=== PATIENT | female | born 1950 | race African-American/Black ===

== ENCOUNTER 2016-12-08 08:30 | Emergency (ER) | payer MEDICARE, MEDICAID ==
[~2016-12-08] VITALS: Ht 167.6 cm; Wt 75.0 kg
[~2016-12-08 08:30] MED LIST: ALBU1AER INH; ALPR0.5T3 PO; CARI350T19 PO; NORC10TA2 PO; NORV10TA PO; OMEP20CA5 PO
[2016-12-08 08:55] VITALS: BP 144/71; PULSE 94; RESP 18; TEMP 97.8; O2SAT 100
[2016-12-08 09:13] VITALS: RESP 18; O2SAT 100
[2016-12-08] MEDS ORDERED: SODIUM CHLORIDE 0.9% FLUSH 5 ML FLUSH IVF PRN (09:15)
--- NOTE | 2016-12-08 09:18 | PD ---
HPI Chief Complaint: Altered Mental Status Time Seen by Provider: 09:03 Travel History International Travel<30 days: No Contact w/Intl Traveler<30days: No Traveled to known affect area: No History of Present Illness HPI Patient is a 66-year-old female with history of HTN, pancreatitis, GERD who presents the emergency department with altered mental status. Apparently patient was at a restaurant this morning where she was found somewhat lethargic. She was transported here by EMS after restaurant called 911. Patient admitted to nursing that she took 3 pain pills this morning, takes hydrocodone. To me, patient is alert to self, no she's in a hospital but does not know which one. She is drowsy, falls asleep easily and needs constant physical/verbal stimulation to stay awake. She denies taking any of her hydrocodone this morning, denies any other ingestion. She does not have any complaints and is requesting to go home at this time. PFSH Past Medical History ADHD: No Arthritis: Yes Asthma: No Autoimmune Disease: No Blood Disorders: No Anxiety: Yes Depression: No Heart Rhythm Problems: No Cancer: No Cardiovascular Problems: Yes High Cholesterol: No Chemotherapy: No Chest Pain: No Congestive Heart Failure: No COPD: No Cerebrovascular Accident: No Diabetes: No Diminished Hearing: No (UNOBTAINABLE) Endocrine: No Gastrointestinal Disorders: Yes (HX. PANCREATITIS) GERD: Yes Glaucoma: No Genitourinary: No Headaches: Yes Hepatitis: No Hiatal Hernia: No Hypertension: Yes Immune Disorder: No Implanted Vascular Access Dvce: No Kidney Stones: No Musculoskeletal: Yes (DEGENERATIVE DISK DISEASE) Neurologic: Yes (ANEURYSM) Psychiatric: No Reproductive: No Respiratory: No Immunizations Current: No Migraines: No Myocardial Infarction: No Pancreatitis: Yes Radiation Therapy: No Renal Failure: No Seizures: No Sickle Cell Disease: No Sleep Apnea: No Thyroid Disease: No Ulcer: No PNEUMOCCOCAL Vaccine (Year): 1 Menopausal: Yes : 9 Para: 9 Miscarriage: 1 Ovarian Cysts: Yes Tubal Ligation: Yes Past Surgical History Abdominal Surgery: Yes AICD: No Appendectomy: Yes Arteriovenous Shunt: No Cardiac Surgery: No Section: Yes (X 1) Cholecystectomy: Yes Ear Surgery: No Endocrine Surgery: No Eye Surgery: No Genitourinary Surgery: No Gynecologic Surgery: Yes (C-SEC) Insulin Pump: No Joint Replacement: No Neurologic Surgery: No Oral Surgery: No Pacemaker: No Thoracic Surgery: No Other Surgery: Yes (CHOLECYSTECTOMY) Social History Alcohol Use: Yes Tobacco Use: Yes (12/05 PPD) Substance Use: No (UNOBTAINABLE) Allergies-Medications (Allergen,Severity, Reaction): Coded Allergies: No Known Allergies (Verified , 04/26/16) Reported Meds & Prescriptions Reported Meds & Active Scripts Active Prilosec 20 mg (Omeprazole) 20 Mg Capcr 20 Mg PO DAILY Reported Proair Hfa (Albuterol Sulfate) 8.5 Gm Aero 2 Puff INH Q4HR PRN * 2 PUFFS INHALED 15 MINUTES PRIOR TO EXERCISE * * SHAKE WELL BEFORE USE * Carisoprodol 350 Mg Tab 350 Mg PO TID PRN [place] 10-325 mg (Hydrocodone-Acetaminophen 10-325 mg) 1 Tab 1 Tab PO Q4-6H PRN Alprazolam 0.5 Mg Tab 0.5 Mg PO TID PRN Norvasc (Amlodipine Besylate) 10 Mg Tab 1 Tab PO DAILY Review of Systems ROS Limitations: Altered Mental Status, Poor Historian Physical Exam Exam Limitations: Altered Mental Status, Poor Historian Narrative GENERAL: Drowsy female in no acute distress SKIN: Warm and dry. HEAD: Atraumatic. Normocephalic. EYES: Pupils equal and round. 3 mm. No scleral icterus. No injection or drainage. ENT: No nasal bleeding or discharge. Mucous membranes pink and moist. NECK: Supple without nuchal rigidity CARDIOVASCULAR: Regular rate and rhythm. No murmur appreciated. RESPIRATORY: No accessory muscle use. Clear to auscultation. Breath sounds equal bilaterally. GASTROINTESTINAL: Abdomen soft, non-tender, nondistended. Obese MUSCULOSKELETAL: Moves all extremity's normally NEUROLOGICAL: Drowsy, falls asleep easily on exam. Alert to person, no she's in a hospital but does not know which one. Alert to date. Grossly nonfocal neuro exam, moves all extremity strong. Speech is slurred. PSYCHIATRIC: Deferred given mental status Data Data Last Documented VS Vital Signs Date Time Temp Pulse Resp B/P Pulse Ox O2 Delivery O2 Flow Rate FiO2 12/08/16 09:13 18 100 Room Air 12/08/16 08:55 97.8 94 144/71 Orders Electrocardiogram (12/08/16 09:07) Alcohol (Ethanol) (12/08/16 09:07) Complete Blood Count With Diff (12/08/16 09:07) Comprehensive Metabolic Panel (12/08/16 09:07) Drug Screen, Random Urine (12/08/16 09:07) Salicylates (Aspirin) (12/08/16 09:07) Tylenol (Acetaminophen) (12/08/16 09:07) Ecg Monitoring (12/08/16 09:07) Iv Access Insert/Monitor (12/08/16 09:07) Oximetry (12/08/16 09:07) Sodium Chloride 0.9% Flush (Ns Flush) (12/08/16 09:15) Labs Laboratory Tests Test 12/08/16 09:25 White Blood Count 10.9 TH/MM3 Red Blood Count 4.30 MIL/MM3 Hemoglobin 10.4 GM/DL Hematocrit 31.0 % Mean Corpuscular Volume 72.2 FL Mean Corpuscular Hemoglobin 24.3 PG Mean Corpuscular Hemoglobin 33.7 % Concent Red Cell Distribution Width 14.5 % Platelet Count 283 TH/MM3 Mean Platelet Volume 9.1 FL Neutrophils (%) (Auto) 51.4 % Lymphocytes (%) (Auto) 35.9 % Monocytes (%) (Auto) 9.7 % Eosinophils (%) (Auto) 2.4 % Basophils (%) (Auto) 0.6 % Neutrophils # (Auto) 5.6 TH/MM3 Lymphocytes # (Auto) 3.9 TH/MM3 Monocytes # (Auto) 1.1 TH/MM3 Eosinophils # (Auto) 0.3 TH/MM3 Basophils # (Auto) 0.1 TH/MM3 CBC Comment AUTO DIFF Differential Comment AUTO DIFF CONFIRMED Sodium Level 137 MEQ/L Potassium Level 5.1 MEQ/L Chloride Level 101 MEQ/L Carbon Dioxide Level 31.9 MEQ/L Anion Gap 4 MEQ/L Blood Urea Nitrogen 15 MG/DL Creatinine 0.83 MG/DL Estimat Glomerular Filtration 83 ML/MIN Rate Random Glucose 84 MG/DL Calcium Level 9.0 MG/DL Total Bilirubin 0.3 MG/DL Aspartate Amino Transf 57 U/L (AST/SGOT) Alanine Aminotransferase 41 U/L (ALT/SGPT) Alkaline Phosphatase 139 U/L Total Protein 7.7 GM/DL Albumin 3.3 GM/DL Salicylates Level 2.6 MG/DL Acetaminophen Level LESS THAN 2.0 MCG/ML Ethyl Alcohol Level LESS THAN 3 MG/DL MDM Medical Decision Making Medical Screen Exam Complete: Yes Emergency Medical Condition: Yes Medical Record Reviewed: Yes Differential Diagnosis 66-year-old female here with altered mental status, questionable overdose. Differential includes alcohol intoxication, opioid abuse, overdose, electrolyte abnormality. Neurologic examination nonfocal. I do not think she warrants imaging for ICH, CVA. Narrative Course Patient placed on monitor, IV established and blood obtained. Twelve-lead EKG shows sinus rhythm without notable ST or T-wave abnormalities, normal intervals. Occasional PVCs. CBC, CMP, aspirin, Tylenol, blood alcohol level unremarkable. Patient's mental status gradually improved throughout her ED stay. She is able to ablate without difficulty. She refuses to give urinalysis , and refuses to be cathetered. I don't think that this changes her disposition. She is chronically on opioids and I anticipate this to be present in her urine. Patient has not had any respiratory or neurologic compromise in her mental status continues to improve. She has never required Narcan and will be discharged home. Diagnosis Primary Impression: Opioid use disorder, mild, abuse Additional Impression: Altered mental status Qualified Code: R41.82 - Altered mental status, unspecified altered mental status type Referrals: Primary Care Physician as needed Med/Other Pt SpecificInfo: No Change to Meds Disposition: 01 DISCHARGE HOME Condition: Stable Nelida Daniels MD Dec 08, 2016 09:18 Nelida Daniels MD Dec 08, 2016 09:18
[2016-12-08 09:53] LABS: AUTOMATED NEUTROPHIL # 5.6 TH/MM3 (1.8-7.7); BASOPHIL # 0.1 TH/MM3 (0-0.2); BASOPHIL % 0.6 % (0.0-2.0); EOSINOPHIL # 0.3 TH/MM3 (0-0.4); EOSINOPHIL % 2.4 % (0.0-4.0); LYMPH % 35.9 % (9.0-44.0); LYMPHOCYTE # 3.9 TH/MM3 (1.0-4.8); MEAN CELL VOLUME 72.2 FL (80.0-100.0); MEAN CORPUSCULAR HEMOGLOBIN 24.3 PG (27.0-34.0); MEAN CORPUSCULAR HGB CONC 33.7 % (32.0-36.0); MONO % 9.7 % (0.0-8.0); NEUT % 51.4 % (16.0-70.0); PLATELET COUNT 283 TH/MM3 (150-450); RED CELL DISTRIBUTION WIDTH 14.5 % (11.6-17.2); WHITE BLOOD COUNT 10.9 TH/MM3 (4.0-11.0)
[2016-12-08 09:56] LABS: HEMO FLAGS AUTO DIFF
[2016-12-08 10:24] LABS: ALKALINE PHOSPHATASE 139 U/L (45-117); ALT (GPT) 41 U/L (10-53); ANION GAP 4 MEQ/L (5-15); AST (GOT) 57 U/L (15-37); BICARBONATE 31.9 MEQ/L (21.0-32.0); BLOOD UREA NITROGEN 15 MG/DL (7-18); CHLORIDE 101 MEQ/L (98-107); GLOMERULAR FILTRATION RATE 83 ML/MIN (>89); SCAN/DIFF AUTO DIFF CONFIRMED; SODIUM (NA) 137 MEQ/L (136-145); TOTAL BILIRUBIN ADULT 0.3 MG/DL (0.2-1.0)
[2016-12-08 10:25] LABS: ACETAMINOPHEN LESS THAN 2.0 MCG/ML (10.0-30.0); POTASSIUM 5.1 MEQ/L (3.5-5.1)
[2016-12-08 12:00] VITALS: BP 131/74; PULSE 92; RESP 18; O2SAT 98
--- NOTE | 2016-12-08 14:06 | EKG ---
Date Performed: 12/08/2016 Time Performed: 09:41:59 PTAGE: 66 years EKG: Sinus rhythm WITH OCCASIONAL VENTRICULAR PREMATURE COMPLEXES BORDERLINE ECG PREVIOUS TRACING : 04/26/2016 10.22 Compared to the previous tracing, PVCs now noted DOCTOR: Quang Duenas Interpretating Date/Time 12/08/2016 14:05:25
== END 2016-12-08 12:00 | disposition home or self-care (01) ==
LOC: NEPE 08:30
DX: R41.82 Altered mental status, unspecified (principal); F11.10 Opioid abuse, uncomplicated; R94.31 Abnormal electrocardiogram [ECG] [EKG]; K21.9 Gastro-esophageal reflux disease without esophagitis; I10 Essential (primary) hypertension; K85.90 Acute pancreatitis without necrosis or infection, unspecified; M19.90 Unspecified osteoarthritis, unspecified site; F17.210 Nicotine dependence, cigarettes, uncomplicated
CPT/HCPCS: 80053; 85025; 93005; 99285; G0480; 80320; 80329

== ENCOUNTER 2016-12-25 16:54 | Emergency (ER) | payer MEDICARE, MEDICAID ==
[~2016-12-25] VITALS: Ht 157.5 cm; Wt 70.0 kg
[2016-12-25 16:56] VITALS: BP 180/104; PULSE 127; RESP 14; TEMP 99; O2SAT 94
--- NOTE | 2016-12-25 18:22 | PD ---
HPI Chief Complaint: GI Complaint Time Seen by Provider: 18:21 Travel History International Travel<30 days: No Contact w/Intl Traveler<30days: No Traveled to known affect area: No History of Present Illness HPI 66 year-old female with history of CAD, hypertension, GERD, anxiety, opioid abuse, tobacco dependency, presents to emergency department for evaluation of "not feeling well." Patient states she has had cough, chest congestion, shortness of breath, fever, chills, and headache worsening over the last couple days. States that she aches "all over." Patient has had some nausea, no vomiting. She has had an episode of diarrhea. She has no other symptoms to report at this time. PFSH Past Medical History ADHD: No Arthritis: Yes Asthma: No Autoimmune Disease: No Blood Disorders: No Anxiety: Yes Depression: No Heart Rhythm Problems: No Cancer: No Cardiovascular Problems: Yes High Cholesterol: No Chemotherapy: No Chest Pain: No Congestive Heart Failure: No COPD: No Cerebrovascular Accident: No Diabetes: No Diminished Hearing: No (UNOBTAINABLE) Endocrine: No Gastrointestinal Disorders: Yes (HX. PANCREATITIS) GERD: Yes Glaucoma: No Genitourinary: No Headaches: Yes Hepatitis: No Hiatal Hernia: No Hypertension: Yes Immune Disorder: No Implanted Vascular Access Dvce: No Kidney Stones: No Musculoskeletal: Yes (DEGENERATIVE DISK DISEASE) Neurologic: Yes (ANEURYSM) Psychiatric: No Reproductive: No Respiratory: No Immunizations Current: No Migraines: No Myocardial Infarction: No Pancreatitis: Yes Radiation Therapy: No Renal Failure: No Seizures: No Sickle Cell Disease: No Sleep Apnea: No Thyroid Disease: No Ulcer: No PNEUMOCCOCAL Vaccine (Year): 1 Menopausal: Yes : 9 Para: 9 Miscarriage: 1 Ovarian Cysts: Yes Tubal Ligation: Yes Past Surgical History Abdominal Surgery: Yes AICD: No Appendectomy: Yes Arteriovenous Shunt: No Cardiac Surgery: No Section: Yes (X 1) Cholecystectomy: Yes Ear Surgery: No Endocrine Surgery: No Eye Surgery: No Genitourinary Surgery: No Gynecologic Surgery: Yes (C-SEC) Insulin Pump: No Joint Replacement: No Neurologic Surgery: No Oral Surgery: No Pacemaker: No Thoracic Surgery: No Other Surgery: Yes (CHOLECYSTECTOMY) Social History Alcohol Use: Yes Tobacco Use: Yes (12/05 PPD) Substance Use: No (UNOBTAINABLE) Allergies-Medications (Allergen,Severity, Reaction): Coded Allergies: No Known Allergies (Verified , 04/26/16) Reported Meds & Prescriptions Reported Meds & Active Scripts Active Prilosec 20 mg (Omeprazole) 20 Mg Capcr 20 Mg PO DAILY Reported Proair Hfa (Albuterol Sulfate) 8.5 Gm Aero 2 Puff INH Q4HR PRN * 2 PUFFS INHALED 15 MINUTES PRIOR TO EXERCISE * * SHAKE WELL BEFORE USE * Carisoprodol 350 Mg Tab 350 Mg PO TID PRN [place] 10-325 mg (Hydrocodone-Acetaminophen 10-325 mg) 1 Tab 1 Tab PO Q4-6H PRN Alprazolam 0.5 Mg Tab 0.5 Mg PO TID PRN Norvasc (Amlodipine Besylate) 10 Mg Tab 1 Tab PO DAILY Review of Systems Except as stated in HPI: all other systems reviewed are Neg Physical Exam Narrative GENERAL: Well-nourished female patient, sitting up in the bed, in no acute distress SKIN: Warm and dry. HEAD: Atraumatic. Normocephalic. EYES: Pupils equal and round. No scleral icterus. No injection or drainage. ENT: No nasal bleeding or discharge. Mucous membranes pink and moist. NECK: Trachea midline. No JVD. CARDIOVASCULAR: Tachycardic rate and rhythm. No murmur appreciated. RESPIRATORY: No accessory muscle use. Diminished, coarse,. Breath sounds equal bilaterally. GASTROINTESTINAL: Abdomen soft, non-tender, nondistended. Hepatic and splenic margins not palpable. MUSCULOSKELETAL: No obvious deformities. No clubbing. No cyanosis. No edema. NEUROLOGICAL: Awake and alert. No obvious cranial nerve deficits. Motor grossly within normal limits. Normal speech. PSYCHIATRIC: Appropriate mood and affect; insight and judgment normal. Data Data Last Documented VS Vital Signs Date Time Temp Pulse Resp B/P Pulse Ox O2 Delivery O2 Flow Rate FiO2 12/25/16 20:37 20 12/25/16 16:56 99.0 127 180/104 94 Room Air Orders Electrocardiogram (12/25/16 18:22) Basic Metabolic Panel (Bmp) (12/25/16 18:22) B-Type Natriuretic Peptide (12/25/16 18:22) Ckmb (Isoenzyme) Profile (12/25/16 18:22) Complete Blood Count With Diff (12/25/16 18:22) Magnesium (Mg) (12/25/16 18:22) Prothrombin Time / Inr (Pt) (12/25/16 18:22) Act Partial Throm Time (Ptt) (12/25/16 18:22) Troponin I (12/25/16 18:22) Lipase (12/25/16 18:22) Chest, Single Ap (12/25/16 18:22) Influenzae A/B Antigen (12/25/16 18:22) Labs Laboratory Tests Test 12/25/16 18:58 White Blood Count 15.6 TH/MM3 Red Blood Count 5.10 MIL/MM3 Hemoglobin 11.8 GM/DL Hematocrit 36.4 % Mean Corpuscular Volume 71.4 FL Mean Corpuscular Hemoglobin 23.1 PG Mean Corpuscular Hemoglobin 32.3 % Concent Red Cell Distribution Width 14.8 % Platelet Count 383 TH/MM3 Mean Platelet Volume 8.7 FL Neutrophils (%) (Auto) 76.2 % Lymphocytes (%) (Auto) 11.7 % Monocytes (%) (Auto) 10.6 % Eosinophils (%) (Auto) 1.1 % Basophils (%) (Auto) 0.4 % Neutrophils # (Auto) 11.9 TH/MM3 Lymphocytes # (Auto) 1.8 TH/MM3 Monocytes # (Auto) 1.7 TH/MM3 Eosinophils # (Auto) 0.2 TH/MM3 Basophils # (Auto) 0.1 TH/MM3 CBC Comment AUTO DIFF Differential Comment AUTO DIFF CONFIRMED Platelet Estimate NORMAL Platelet Morphology Comment NORMAL Target Cells 2+ Prothrombin Time 10.5 SEC Prothromb Time International 1.0 RATIO Ratio Activated Partial 27.0 SEC Thromboplast Time Sodium Level 141 MEQ/L Potassium Level 3.8 MEQ/L Chloride Level 104 MEQ/L Carbon Dioxide Level 27.9 MEQ/L Anion Gap 9 MEQ/L Blood Urea Nitrogen 16 MG/DL Creatinine 1.12 MG/DL Estimat Glomerular Filtration 59 ML/MIN Rate Random Glucose 106 MG/DL Calcium Level 9.3 MG/DL Magnesium Level 2.0 MG/DL Total Creatine Kinase 86 U/L Troponin I LESS THAN 0.02 NG/ML Lipase 171 U/L MDM Medical Decision Making Medical Screen Exam Complete: Yes Emergency Medical Condition: Yes Medical Record Reviewed: Yes Differential Diagnosis CHF versus pneumonia versus influenza versus gastroenteritis versus sepsis Narrative Course 66 year-old female presents to emergency department for evaluation. Workup was initiated in triage. Once a medical bed becomes available, patient will be transferring care assumed by that provider. Condition: Stable Zully Skinner Dec 25, 2016 18:22 Zully Skinner Dec 25, 2016 18:22
--- NOTE | 2016-12-25 18:59 | RADRPT ---
EXAM DATE/TIME: 12/25/2016 18:25 [facility] COMPARISON: CHEST SINGLE AP, April 26, 2016, 10:51. INDICATIONS : Flu like symptoms for five days. Congestion and weakness. MEDICAL HISTORY : Hypertension. SURGICAL HISTORY : None. ENCOUNTER: Initial ACUITY: 4 - 6 days PAIN SCORE: 0/10 LOCATION: Bilateral chest FINDINGS: A single view of the chest demonstrates the lungs to be symmetrically aerated without evidence of mas s, infiltrate or effusion. The cardiomediastinal contours are unremarkable. Osseous structures are intact. CONCLUSION: No acute disease. Jair Humphrey Jr., MD on December 25, 2016 at 18:57 Board Certified Radiologist. This report was verified electronically.
[2016-12-25 19:25] LABS: AUTOMATED NEUTROPHIL # 11.9 TH/MM3 (1.8-7.7); BASOPHIL # 0.1 TH/MM3 (0-0.2); BASOPHIL % 0.4 % (0.0-2.0); EOSINOPHIL # 0.2 TH/MM3 (0-0.4); EOSINOPHIL % 1.1 % (0.0-4.0); HEMATOCRIT 36.4 % (35.0-46.0); LYMPH % 11.7 % (9.0-44.0); LYMPHOCYTE # 1.8 TH/MM3 (1.0-4.8); MEAN CELL VOLUME 71.4 FL (80.0-100.0); MEAN CORPUSCULAR HEMOGLOBIN 23.1 PG (27.0-34.0); MEAN CORPUSCULAR HGB CONC 32.3 % (32.0-36.0); MONO % 10.6 % (0.0-8.0); NEUT % 76.2 % (16.0-70.0); PLATELET COUNT 383 TH/MM3 (150-450); RED CELL DISTRIBUTION WIDTH 14.8 % (11.6-17.2); WHITE BLOOD COUNT 15.6 TH/MM3 (4.0-11.0)
[2016-12-25 19:26] LABS: HEMO FLAGS AUTO DIFF
[2016-12-25 19:40] LABS: PROTHROMBIN TIME - PATIENT 10.5 SEC (9.8-11.6)
[2016-12-25 19:42] LABS: ANION GAP 9 MEQ/L (5-15); BICARBONATE 27.9 MEQ/L (21.0-32.0); BLOOD UREA NITROGEN 16 MG/DL (7-18); CHLORIDE 104 MEQ/L (98-107); GLOMERULAR FILTRATION RATE 59 ML/MIN (>89); POTASSIUM 3.8 MEQ/L (3.5-5.1); SODIUM (NA) 141 MEQ/L (136-145)
[2016-12-25 19:48] LABS: CREATINE KINASE 86 U/L (26-192)
[2016-12-25 19:59] LABS: TARGET CELLS 2+ (NORMAL)
[2016-12-25 20:00] LABS: PLATELET ESTIMATE SMEAR NORMAL (NORMAL); PLATELET MORPHOLOGY NORMAL (NORMAL); SCAN/DIFF AUTO DIFF CONFIRMED
[2016-12-25] MEDS ORDERED: CARI350T20 PO (20:44)
[2016-12-25] MEDS ORDERED: ALBUAER3 INH (20:44)
[2016-12-25] MEDS ORDERED: AMLO10 PO (20:44)
[2016-12-25] MEDS ORDERED: OMEP20TA PO (20:44)
[2016-12-25 20:46] VITALS: BP 147/85; PULSE 115; RESP 14; TEMP 98.9; O2SAT 97
[2016-12-25] MEDS ORDERED: SODIUM CHLOR 0.9% 1000 ML INJ 1,000 ML IV SCH (21:13)
[2016-12-25] MEDS ORDERED: SODIUM CHLOR 0.9% 1000 ML INJ 1,000 ML IV ONE (21:15)
[2016-12-25] MEDS ORDERED: HYDROmorphone HCL PF 1 MG/ML VIAL IVS ONE (21:15)
--- NOTE | 2016-12-25 22:18 | PD ---
Data Data Last Documented VS Vital Signs Date Time Temp Pulse Resp B/P Pulse Ox O2 Delivery O2 Flow Rate FiO2 12/26/16 00:52 97 18 165/77 98 Room Air 12/25/16 20:46 98.9 2 Orders Electrocardiogram (12/25/16 18:22) Basic Metabolic Panel (Bmp) (12/25/16 18:22) B-Type Natriuretic Peptide (12/25/16 18:22) Ckmb (Isoenzyme) Profile (12/25/16 18:22) Complete Blood Count With Diff (12/25/16 18:22) Magnesium (Mg) (12/25/16 18:22) Prothrombin Time / Inr (Pt) (12/25/16 18:22) Act Partial Throm Time (Ptt) (12/25/16 18:22) Troponin I (12/25/16 18:22) Lipase (12/25/16 18:22) Chest, Single Ap (12/25/16 18:22) Influenzae A/B Antigen (12/25/16 18:22) Lactic Acid (12/25/16 21:13) Sodium Chlor 0.9% 1000 Ml Inj (Ns 1000 M (12/25/16 21:13) Hydromorphone Pf Inj (Dilaudid Pf Inj) (12/25/16 21:15) Sodium Chlor 0.9% 1000 Ml Inj (Ns 1000 M (12/25/16 21:15) Influenzae A/B Antigen (12/25/16 21:13) Hepatic Functional Panel (12/25/16 18:58) Albuterol Hfa Inh (Proair Hfa Inh) (12/26/16 00:15) Methylprednisolone So Succ Inj (Solumedr (12/26/16 00:30) Labs Laboratory Tests Test 12/25/16 12/25/16 18:58 22:10 White Blood Count 15.6 TH/MM3 Red Blood Count 5.10 MIL/MM3 Hemoglobin 11.8 GM/DL Hematocrit 36.4 % Mean Corpuscular Volume 71.4 FL Mean Corpuscular Hemoglobin 23.1 PG Mean Corpuscular Hemoglobin 32.3 % Concent Red Cell Distribution Width 14.8 % Platelet Count 383 TH/MM3 Mean Platelet Volume 8.7 FL Neutrophils (%) (Auto) 76.2 % Lymphocytes (%) (Auto) 11.7 % Monocytes (%) (Auto) 10.6 % Eosinophils (%) (Auto) 1.1 % Basophils (%) (Auto) 0.4 % Neutrophils # (Auto) 11.9 TH/MM3 Lymphocytes # (Auto) 1.8 TH/MM3 Monocytes # (Auto) 1.7 TH/MM3 Eosinophils # (Auto) 0.2 TH/MM3 Basophils # (Auto) 0.1 TH/MM3 CBC Comment AUTO DIFF Differential Comment AUTO DIFF CONFIRMED Platelet Estimate NORMAL Platelet Morphology Comment NORMAL Target Cells 2+ Prothrombin Time 10.5 SEC Prothromb Time International 1.0 RATIO Ratio Activated Partial 27.0 SEC Thromboplast Time Sodium Level 141 MEQ/L Potassium Level 3.8 MEQ/L Chloride Level 104 MEQ/L Carbon Dioxide Level 27.9 MEQ/L Anion Gap 9 MEQ/L Blood Urea Nitrogen 16 MG/DL Creatinine 1.12 MG/DL Estimat Glomerular Filtration 59 ML/MIN Rate Random Glucose 106 MG/DL Calcium Level 9.3 MG/DL Magnesium Level 2.0 MG/DL Total Bilirubin 0.4 MG/DL Direct Bilirubin 0.1 MG/DL Indirect Bilirubin 0.3 MG/DL Aspartate Amino Transf 18 U/L (AST/SGOT) Alanine Aminotransferase 16 U/L (ALT/SGPT) Alkaline Phosphatase 111 U/L Total Creatine Kinase 86 U/L Troponin I LESS THAN 0.02 NG/ML B-Type Natriuretic Peptide 17 PG/ML Total Protein 8.8 GM/DL Albumin 3.6 GM/DL Lipase 171 U/L Lactic Acid Level 1.0 mmol/L [facility] Medical Record Reviewed: Yes Supervised Visit with ZULAY: Yes Narrative Course I, Dr. Duenas, have reviewed the advance practice practitioner's documentation and am in agreement, met with the patient face to face, made the diagnosis, and the medical decision making was done by me. *My assessment and Findings: CBC & BMP Diagram 12/25/16 18:58 Neutrophils 76.2% LFTs normal Tn < 0.02 Lipase 171 Coags 10.5 / 1.0 / 27.0 EKG reveals a sinus tachycardia with a rate of 123 axis is normal, ventricular hypertrophy Last 24 hours Impressions Chest X-Ray 12/25/16 0262 Signed Impressions: Service Date/Time: Sunday, December 25, 2016 18:25 - CONCLUSION: No acute disease. Jair Humphrey Jr., MD Influenza assay negative: could be false negative Overall presentation similar to prior cases of influenza. Patient received IV fluids. She reports feeling much better. She also received hydromorphone with significant improvement. Mild persistent wheezing observed on reassessment. Albuterol inhaler. Diagnosis Primary Impression: Wheezing Additional Impression: Flu-like symptoms Referrals: Dr Jair Shepard 2 days Additional Instruction: You have a choice when it comes to health care, and we are glad that you chose [facility]. Hopefully, we have met your expectations on today's visit. You are welcome to return to [facility] at any time, as we are committed to meeting the health care needs of our community. Med/Other Pt SpecificInfo: Prescription(s) given Scripts Prednisone 20 Mg Tab40 Mg PO DAILY 4 Days Ref 0 Prov:Shakir Duenas MD 12/26/16 Oseltamivir (Tamiflu)75 Mg Cap75 Mg PO BID 7 Days Ref 0 Prov:Shakir Duenas MD 12/26/16 Disposition: 01 DISCHARGE HOME Condition: Shakir Charlton MD Dec 25, 2016 22:18 [facility]. Hopefully, we have met your expectations on today's visit. You are welcome to return to [facility] at any time, as we are committed to meeting the health care needs of our community. Med/Other Pt SpecificInfo: Prescription(s) given Scripts Prednisone 20 Mg Tab40 Mg PO DAILY 4 Days Ref 0 Prov:Shakir Duenas MD 12/26/16 Oseltamivir (Tamiflu)75 Mg Cap75 Mg PO BID 7 Days Ref 0 Prov:Shakir Duenas MD 12/26/16 Disposition: 01 DISCHARGE HOME Condition: Shakir Charlton MD Dec 25, 2016 22:18
[2016-12-25 23:14] LABS: ALKALINE PHOSPHATASE 111 U/L (45-117); ALT (GPT) 16 U/L (10-53); AST (GOT) 18 U/L (15-37); INDIRECT BILIRUBIN 0.3 MG/DL (0.0-0.8); TOTAL BILIRUBIN ADULT 0.4 MG/DL (0.2-1.0)
[2016-12-26] MEDS ORDERED: ALBUTEROL SULFATE 90 MCG/ACT HFA 8 GM INHALER INH ONE (00:15)
[2016-12-26] MEDS ORDERED: OSEL75 PO (00:17)
[2016-12-26] MEDS ORDERED: PRED20 PO (00:17)
[2016-12-26] MEDS ORDERED: methylPREDNISolone SOD SUCC 125 MG/2 ML VIAL IV PUSH ONE (00:30)
[2016-12-26 00:52] VITALS: BP 165/77; PULSE 97; RESP 18; O2SAT 98
--- NOTE | 2016-12-26 05:43 | EKG ---
Date Performed: 12/25/2016 Time Performed: 19:12:35 PTAGE: 66 years EKG: SINUS TACHYCARDIA WITH SHORT IN INTERVAL LEFT VENTRICULAR HYPERTROPHY AND ST-T CHANGE ABNOR MAL ECG COMPARED TO PRIOR ELECTROCARDIOGRAM, Rate has increased and ST-T wave changes are present. P REVIOUS TRACING : 12/08/2016 09.41 DOCTOR: Gama Kovacs Interpretating Date/Time 12/26/2016 05:41:43
== END 2016-12-26 01:37 | disposition home or self-care (01) ==
LOC: NEPC 16:54
DX: R06.2 Wheezing (principal); R06.02 Shortness of breath; R50.9 Fever, unspecified; R51 Headache; M79.1 Myalgia; R94.31 Abnormal electrocardiogram [ECG] [EKG]; I25.10 Atherosclerotic heart disease of native coronary artery without angina pectoris; I10 Essential (primary) hypertension; F11.10 Opioid abuse, uncomplicated; F17.200 Nicotine dependence, unspecified, uncomplicated; Z86.59 Personal history of other mental and behavioral disorders; Z87.39 Personal history of other diseases of the musculoskeletal system and connective tissue; Z87.19 Personal history of other diseases of the digestive system; Z86.69 Personal history of other diseases of the nervous system and sense organs
CPT/HCPCS: 71010; 80048; 80076; 82550; 83605; 83690; 83735; 83880; 84484; 85025; 85610; 85730; 87804; 93005; 96374; 96375; 99284; J1170; J2930; J7030

== ENCOUNTER 2018-02-16 14:53 | Emergency (ER) | payer MEDICARE, MEDICAID ==
[~2018-02-16] VITALS: Ht 157.5 cm; Wt 77.0 kg
[~2018-02-16 14:53] MED LIST changes: +ALBUAER3 INH; +AMLO10 PO; +CARI350T20 PO; +OMEP20TA93 PO; +OSEL75 PO; +PRED20 PO
[2018-02-16] MEDS ORDERED: IOHEXOL 350 MG/ML 10 ML VIAL (for RAD DIAG) IVCONTRAST ONE (14:54)
[2018-02-16 15:11] VITALS: BP 163/68; PULSE 110; RESP 16; TEMP 98.1; O2SAT 97
[2018-02-16 17:45] VITALS: BP 143/65; PULSE 96; RESP 18; O2SAT 97
[2018-02-16] MEDS ORDERED: MORPHINE SULFATE 4 MG/ML INJ IV PUSH ONE (17:45)
[2018-02-16] MEDS ORDERED: SODIUM CHLORIDE 0.9% FLUSH 10 ML FLUSH IV FLUSH PRN (17:45)
[2018-02-16] MEDS ORDERED: SODIUM CHLOR 0.9% 1000 ML INJ 1,000 ML IV ONE (17:45)
[2018-02-16] MEDS ORDERED: ONDANSETRON HCL 4 MG/2 ML VIAL IVP ONE (17:45)
--- NOTE | 2018-02-16 17:47 | PD ---
HPI Chief Complaint: Abdominal Pain Time Seen by Provider: 17:32 Travel History International Travel<30 days: No Contact w/Intl Traveler<30days: No Traveled to known affect area: No History of Present Illness HPI 67-year-old female presents to the emergency department for evaluation of abdominal pain, incontinence of stool, diarrhea that started 2 weeks ago. She states she has lost control of her bowels. Patient reports history of pancreatitis, GERD, hypertension. She reports history of cholecystectomy. She states that she is having abdominal pain that radiates to the back. She reports history of pancreatitis. She states her abdomen is distended. She denies any fevers or chills. She states that she gets short of breath with exertion, due to the pain. She denies any chest pain. Current pain is 9/10 without radiation. No exacerbating or alleviating factors. Moderate severity. PFSH Past Medical History ADHD: No Arthritis: Yes Asthma: No Autoimmune Disease: No Blood Disorders: No Anxiety: Yes Depression: No Heart Rhythm Problems: No Cancer: No Cardiovascular Problems: Yes High Cholesterol: No Chemotherapy: No Chest Pain: No Congestive Heart Failure: No COPD: No Cerebrovascular Accident: No Diabetes: No Diminished Hearing: No Endocrine: No Gastrointestinal Disorders: Yes (HX. PANCREATITIS) GERD: Yes Glaucoma: No Genitourinary: No Headaches: Yes Hepatitis: No Hiatal Hernia: No Hypertension: Yes Immune Disorder: No Implanted Vascular Access Dvce: No Kidney Stones: No Musculoskeletal: Yes (DEGENERATIVE DISK DISEASE) Neurologic: Yes (ANEURYSM) Psychiatric: No Reproductive: No Respiratory: No Immunizations Current: Yes Migraines: No Myocardial Infarction: No Pancreatitis: Yes Radiation Therapy: No Renal Failure: No Seizures: No Sickle Cell Disease: No Sleep Apnea: No Thyroid Disease: No Ulcer: No PNEUMOCCOCAL Vaccine (Year): 1 Menopausal: Yes : 9 Para: 9 Miscarriage: 1 Ovarian Cysts: Yes Tubal Ligation: Yes Past Surgical History Abdominal Surgery: Yes AICD: No Appendectomy: Yes Arteriovenous Shunt: No Cardiac Surgery: No Section: Yes (X 1) Cholecystectomy: Yes Ear Surgery: No Endocrine Surgery: No Eye Surgery: No Genitourinary Surgery: No Gynecologic Surgery: Yes (C-SEC) Insulin Pump: No Joint Replacement: No Neurologic Surgery: No Oral Surgery: No Pacemaker: No Thoracic Surgery: No Other Surgery: Yes (CHOLECYSTECTOMY) Social History Alcohol Use: Yes Tobacco Use: Yes (12/05 PPD) Substance Use: No Allergies-Medications (Allergen,Severity, Reaction): Coded Allergies: No Known Allergies (Verified Allergy, Unknown, 02/16/18) Reported Meds & Prescriptions Reported Meds & Active Scripts Active Prednisone 20 Mg Tab 40 Mg PO DAILY 4 Days Tamiflu (Oseltamivir Phosphate) 75 Mg Cap 75 Mg PO BID 7 Days Prilosec 20 mg (Omeprazole) 20 Mg Capcr 20 Mg PO DAILY Reported Omeprazole 20 Mg Tab 20 Mg PO DAILY Carisoprodol 350 Mg Tab 350 Mg PO QID PRN Norvasc (Amlodipine Besylate) 10 Mg Tab 10 Mg PO DAILY Proair Hfa 8.5 GM Inh (Albuterol Sulfate) 90 Mcg/Act Aer 2 Puff INH Q4-6H PRN 108 mcg/actuation Proair Hfa (Albuterol Sulfate) 8.5 Gm Aero 2 Puff INH Q4HR PRN * 2 PUFFS INHALED 15 MINUTES PRIOR TO EXERCISE * * SHAKE WELL BEFORE USE * Carisoprodol 350 Mg Tab 350 Mg PO TID PRN [place] 10-325 mg (Hydrocodone-Acetaminophen 10-325 mg) 1 Tab 1 Tab PO Q4-6H PRN Alprazolam 0.5 Mg Tab 0.5 Mg PO TID PRN Norvasc (Amlodipine Besylate) 10 Mg Tab 1 Tab PO DAILY Review of Systems Except as stated in HPI: all other systems reviewed are Neg Physical Exam Narrative GENERAL: Well-nourished, well-developed female patient, afebrile. SKIN: Focused skin assessment warm/dry. HEAD: Normocephalic. Atraumatic. EYES: No scleral icterus. No injection or drainage. NECK: Supple, trachea midline. No JVD or lymphadenopathy. CARDIOVASCULAR: Regular rate and rhythm without murmurs, gallops, or rubs. RESPIRATORY: Breath sounds equal bilaterally. No accessory muscle use. Lung sounds are clear to auscultation. GASTROINTESTINAL: Abdomen distended, generalized tenderness to palpation, worse in the right upper quadrant epigastric regions. MUSCULOSKELETAL: No cyanosis, or edema. BACK: Nontender without obvious deformity. No CVA tenderness. Data Data Last Documented VS Vital Signs Date Time Temp Pulse Resp B/P (MAP) Pulse Ox O2 Delivery O2 Flow Rate FiO2 02/17/18 00:34 02/16/18 23:48 78 18 100 02/16/18 17:45 Room Air 02/16/18 15:11 98.1 Orders Orders Complete Blood Count With Diff (02/16/18 15:13) Comprehensive Metabolic Panel (02/16/18 15:13) Urinalysis - C+S If Indicated (02/16/18 15:13) Lipase (02/16/18 15:13) Prothrombin Time / Inr (Pt) (02/16/18 17:39) Act Partial Throm Time (Ptt) (02/16/18 17:39) Iv Access Insert/Monitor (02/16/18 17:39) Ecg Monitoring (02/16/18 17:39) Oximetry (02/16/18 17:39) Morphine Inj (Morphine Inj) (02/16/18 17:45) Ondansetron Inj (Zofran Inj) (02/16/18 17:45) Sodium Chloride 0.9% Flush (Ns Flush) (02/16/18 17:45) Electrocardiogram (02/16/18 17:39) Creatine Kinase (Cpk) (02/16/18 17:39) Troponin I (02/16/18 17:39) Chest, Single Ap (02/16/18 ) Ct Abd/Pel W Iv Contrast(Rout) (02/16/18 ) Sodium Chlor 0.9% 1000 Ml Inj (Ns 1000 M (02/16/18 17:45) Dextrose 25% In Water Inj (D25w Inj) (02/16/18 20:45) Dextrose 50% In Evan (Vial) Inj (D50w (Vi (02/16/18 21:00) Iohexol 350 Inj (Omnipaque 350 Inj) (02/16/18 14:54) Ed Discharge Order (02/17/18 00:11) Ketorolac Inj (Toradol Inj) (02/17/18 00:15) Labs Laboratory Tests Test 02/16/18 18:35 02/16/18 19:14 02/16/18 19:40 Prothrombin Time 10.3 SEC Prothromb Time International Ratio 1.0 RATIO Activated Partial Thromboplast Time 21.2 SEC Blood Urea Nitrogen 14 MG/DL Creatinine 0.97 MG/DL Random Glucose 69 MG/DL Total Protein 7.7 GM/DL Albumin 3.4 GM/DL Calcium Level 8.9 MG/DL Alkaline Phosphatase 110 U/L Aspartate Amino Transf (AST/SGOT) 23 U/L Alanine Aminotransferase (ALT/SGPT) 17 U/L Total Bilirubin 0.3 MG/DL Sodium Level 144 MEQ/L Potassium Level 4.1 MEQ/L Chloride Level 109 MEQ/L Carbon Dioxide Level 24.3 MEQ/L Anion Gap 11 MEQ/L Estimat Glomerular Filtration Rate 69 ML/MIN Total Creatine Kinase 151 U/L Troponin I LESS THAN 0.02 NG/ML Lipase 116 U/L White Blood Count 7.8 TH/MM3 Red Blood Count 4.69 MIL/MM3 Hemoglobin 10.6 GM/DL Hematocrit 33.7 % Mean Corpuscular Volume 71.9 FL Mean Corpuscular Hemoglobin 22.7 PG Mean Corpuscular Hemoglobin Concent 31.6 % Red Cell Distribution Width 15.2 % Platelet Count 339 TH/MM3 Mean Platelet Volume 8.7 FL Neutrophils (%) (Auto) 65.1 % Lymphocytes (%) (Auto) 25.6 % Monocytes (%) (Auto) 7.4 % Eosinophils (%) (Auto) 1.4 % Basophils (%) (Auto) 0.5 % Neutrophils # (Auto) 5.1 TH/MM3 Lymphocytes # (Auto) 2.0 TH/MM3 Monocytes # (Auto) 0.6 TH/MM3 Eosinophils # (Auto) 0.1 TH/MM3 Basophils # (Auto) 0.0 TH/MM3 CBC Comment DIFF FINAL Differential Comment Urine Color LIGHT-YELLOW Urine Turbidity CLEAR Urine pH 6.5 Urine Specific [place] 1.009 Urine Protein NEG mg/dL Urine Glucose (UA) NEG mg/dL Urine Ketones NEG mg/dL Urine Occult Blood NEG Urine Nitrite NEG Urine Bilirubin NEG Urine Urobilinogen LESS THAN 2.0 MG/DL Urine Leukocyte Esterase NEG Urine WBC 1 /hpf Microscopic Urinalysis Comment CULT NOT INDICATED MDM Medical Decision Making Medical Screen Exam Complete: Yes Emergency Medical Condition: Yes Medical Record Reviewed: Yes Interpretation(s) chest x-ray - CONCLUSION: 1. No acute cardiopulmonary findings. Differential Diagnosis Pancreatitis versus liver cirrhosis versus diverticulitis versus gastritis versus UTI versus pneumonia versus ACS Narrative Course 67-year-old female presents to the emergency department for evaluation of abdominal pain, worsening over the past 2 weeks with history of pancreatitis. EKG, CBC, CMP, CK, troponin, lipase, PTT, PT/INR are ordered and pending. Chest x-ray, CT abdomen/pelvis with IV contrast are ordered and pending. Patient is given normal saline 1 L IV bolus, morphine 4 mg IV, Zofran 4 mg IV. EKG shows sinus rhythm, heart rate 95, no acute ST change. CBC,CMP,Lipase, CK, Troponin, Coags are pending. Chest x-ray shows no acute cardiopulmonary findings. CT abdomen/pelvis is pending. ASHLEY Lentz will resume care and disposition of patient. Cori Hernández Feb 16, 2018 17:47
--- NOTE | 2018-02-16 18:11 | RADRPT ---
EXAM DATE/TIME: 02/16/2018 17:46 [facility] COMPARISON: CHEST SINGLE AP, December 25, 2016, 18:25. INDICATIONS : Short of breath. MEDICAL HISTORY : None. SURGICAL HISTORY : None. ENCOUNTER: Initial ACUITY: 1 day PAIN SCORE: 7/10 LOCATION: Bilateral chest FINDINGS: A single view of the chest demonstrates the lungs to be symmetrically aerated without evidence of mas s, infiltrate or effusion. The cardiomediastinal contours are unremarkable. Osseous structures are intact. CONCLUSION: 1. No acute cardiopulmonary findings. Shakir Campos MD on February 16, 2018 at 18:09 Board Certified Radiologist. This report was verified electronically.
--- NOTE | 2018-02-16 19:27 | PD ---
Data Data Last Documented VS Vital Signs Date Time Temp Pulse Resp B/P (MAP) Pulse Ox O2 Delivery O2 Flow Rate FiO2 02/16/18 23:48 78 18 154/75 (101) 100 02/16/18 17:45 Room Air 02/16/18 15:11 98.1 Orders Orders Complete Blood Count With Diff (02/16/18 15:13) Comprehensive Metabolic Panel (02/16/18 15:13) Urinalysis - C+S If Indicated (02/16/18 15:13) Lipase (02/16/18 15:13) Prothrombin Time / Inr (Pt) (02/16/18 17:39) Act Partial Throm Time (Ptt) (02/16/18 17:39) Iv Access Insert/Monitor (02/16/18 17:39) Ecg Monitoring (02/16/18 17:39) Oximetry (02/16/18 17:39) Morphine Inj (Morphine Inj) (02/16/18 17:45) Ondansetron Inj (Zofran Inj) (02/16/18 17:45) Sodium Chloride 0.9% Flush (Ns Flush) (02/16/18 17:45) Electrocardiogram (02/16/18 17:39) Creatine Kinase (Cpk) (02/16/18 17:39) Troponin I (02/16/18 17:39) Chest, Single Ap (02/16/18 ) Ct Abd/Pel W Iv Contrast(Rout) (02/16/18 ) Sodium Chlor 0.9% 1000 Ml Inj (Ns 1000 M (02/16/18 17:45) Dextrose 25% In Water Inj (D25w Inj) (02/16/18 20:45) Dextrose 50% In Evan (Vial) Inj (D50w (Vi (02/16/18 21:00) Iohexol 350 Inj (Omnipaque 350 Inj) (02/16/18 14:54) Ed Discharge Order (02/17/18 00:11) Ketorolac Inj (Toradol Inj) (02/17/18 00:15) Labs Laboratory Tests Test 02/16/18 18:35 02/16/18 19:14 02/16/18 19:40 Prothrombin Time 10.3 SEC Prothromb Time International Ratio 1.0 RATIO Activated Partial Thromboplast Time 21.2 SEC Blood Urea Nitrogen 14 MG/DL Creatinine 0.97 MG/DL Random Glucose 69 MG/DL Total Protein 7.7 GM/DL Albumin 3.4 GM/DL Calcium Level 8.9 MG/DL Alkaline Phosphatase 110 U/L Aspartate Amino Transf (AST/SGOT) 23 U/L Alanine Aminotransferase (ALT/SGPT) 17 U/L Total Bilirubin 0.3 MG/DL Sodium Level 144 MEQ/L Potassium Level 4.1 MEQ/L Chloride Level 109 MEQ/L Carbon Dioxide Level 24.3 MEQ/L Anion Gap 11 MEQ/L Estimat Glomerular Filtration Rate 69 ML/MIN Total Creatine Kinase 151 U/L Troponin I LESS THAN 0.02 NG/ML Lipase 116 U/L White Blood Count 7.8 TH/MM3 Red Blood Count 4.69 MIL/MM3 Hemoglobin 10.6 GM/DL Hematocrit 33.7 % Mean Corpuscular Volume 71.9 FL Mean Corpuscular Hemoglobin 22.7 PG Mean Corpuscular Hemoglobin Concent 31.6 % Red Cell Distribution Width 15.2 % Platelet Count 339 TH/MM3 Mean Platelet Volume 8.7 FL Neutrophils (%) (Auto) 65.1 % Lymphocytes (%) (Auto) 25.6 % Monocytes (%) (Auto) 7.4 % Eosinophils (%) (Auto) 1.4 % Basophils (%) (Auto) 0.5 % Neutrophils # (Auto) 5.1 TH/MM3 Lymphocytes # (Auto) 2.0 TH/MM3 Monocytes # (Auto) 0.6 TH/MM3 Eosinophils # (Auto) 0.1 TH/MM3 Basophils # (Auto) 0.0 TH/MM3 CBC Comment DIFF FINAL Differential Comment Urine Color LIGHT-YELLOW Urine Turbidity CLEAR Urine pH 6.5 Urine Specific [place] 1.009 Urine Protein NEG mg/dL Urine Glucose (UA) NEG mg/dL Urine Ketones NEG mg/dL Urine Occult Blood NEG Urine Nitrite NEG Urine Bilirubin NEG Urine Urobilinogen LESS THAN 2.0 MG/DL Urine Leukocyte Esterase NEG Urine WBC 1 /hpf Microscopic Urinalysis Comment CULT NOT INDICATED [facility] Medical Record Reviewed: Yes Supervised Visit with ZULAY: No Interpretation(s) CBC reveals a hemoglobin of 10.6 which is at her baseline. CMP glucose 69 Troponin within normal limits CK within normal limits Lipase within normal limits CT abdomen and pelvis Chest x-ray no acute abnormalities Urinalysis normal Narrative Course See previous providers notes for complete history of present illness. I assumed care of this patient pending lab work and imaging studies. 67-year-old female presents for evaluation of epigastric and lower abdominal pain which started 1 week ago. The pain is an aching pain which radiates into the back. She reports a history of uterine fibroids as well as pancreatitis and feels like the pain is secondary to these issues. She reports a history of cholecystectomy. She denies dysuria. She has had some loose stools. Her lab work has been reviewed. CT of the abdomen and pelvis reveals no acute abnormalities. Her lab work reveals a random glucose of 69 but otherwise no acute abnormalities. She was given D50 with improvement in her blood sugar. Per chart review she has been seen here numerous times in the past for chronic abdominal pain, some suspicion in the past of opiate seeking behavior. At this point in time the plan is to discharge the patient and recommended follow-up with a neon electrician. She was given a dose of Toradol prior to discharge. Diagnosis Primary Impression: Chronic abdominal pain Referrals: [employer] Additional Instruction: Follow-up with a neon electrician for further evaluation of your chronic abdominal pain. Return for any emergent medical conditions. Med/Other Pt SpecificInfo: No Change to Meds Disposition: 01 DISCHARGE HOME Condition: Stable Tor Moffett Feb 16, 2018 19:27
[2018-02-16 19:28] LABS: AUTOMATED NEUTROPHIL # 5.1 TH/MM3 (1.8-7.7); BASOPHIL % 0.5 % (0.0-2.0); EOSINOPHIL # 0.1 TH/MM3 (0-0.4); EOSINOPHIL % 1.4 % (0.0-4.0); HEMATOCRIT 33.7 % (35.0-46.0); HEMOGLOBIN 10.6 GM/DL (11.6-15.3); LYMPH % 25.6 % (9.0-44.0); MEAN CELL VOLUME 71.9 FL (80.0-100.0); MEAN CORPUSCULAR HEMOGLOBIN 22.7 PG (27.0-34.0); MEAN CORPUSCULAR HGB CONC 31.6 % (32.0-36.0); MEAN PLATELET VOLUME 8.7 FL (7.0-11.0); MONO % 7.4 % (0.0-8.0); MONOCYTE # 0.6 TH/MM3 (0-0.9); NEUT % 65.1 % (16.0-70.0); PLATELET COUNT 339 TH/MM3 (150-450); RED BLOOD COUNT 4.69 MIL/MM3 (4.00-5.30); RED CELL DISTRIBUTION WIDTH 15.2 % (11.6-17.2); WHITE BLOOD COUNT 7.8 TH/MM3 (4.0-11.0)
[2018-02-16 19:33] LABS: TROPONIN I LESS THAN 0.02 NG/ML (0.02-0.05)
[2018-02-16 19:37] LABS: PROTHROMBIN TIME - PATIENT 10.3 SEC (9.8-11.6)
[2018-02-16 20:14] LABS: BILIRUBIN, URINE NEG (NEG); BLOOD, URINE NEG (NEG); GLUCOSE,URINE NEG (NEG); KETONE, URINE NEG (NEG); NITRITE,URINE NEG (NEG); PH, URINE 6.5 (5.0-8.5); URINE COLOR LIGHT-YELLOW (YELLW/STRAW); URINE LEUKOCYTE ESTERASE NEG (NEG)
[2018-02-16 20:41] LABS: ALBUMIN 3.4 GM/DL (3.4-5.0); ALT (GPT) 17 U/L (10-53); AST (GOT) 23 U/L (15-37); BICARBONATE 24.3 MEQ/L (21.0-32.0); BLOOD UREA NITROGEN 14 MG/DL (7-18); CALCIUM 8.9 MG/DL (8.5-10.1); CHLORIDE 109 MEQ/L (98-107); CREATININE 0.97 MG/DL (0.50-1.00); GLOMERULAR FILTRATION RATE 69 ML/MIN (>89); GLUCOSE,RANDOM 69 MG/DL (74-106); SODIUM (NA) 144 MEQ/L (136-145)
[2018-02-16 20:44] LABS: ALKALINE PHOSPHATASE 110 U/L (45-117); TOTAL BILIRUBIN ADULT 0.3 MG/DL (0.2-1.0); TOTAL PROTEIN 7.7 GM/DL (6.4-8.2)
[2018-02-16] MEDS ORDERED: DEXTROSE 25% IN WATER 10 ML SYRINGE IV PUSH ONE (20:45)
[2018-02-16] MEDS ORDERED: DEXTROSE 50% IN WATER 50 ML VIAL(D50) IV PUSH ONE (21:00)
[2018-02-16 23:48] VITALS: BP 154/75; PULSE 78; RESP 18; O2SAT 100
--- NOTE | 2018-02-17 00:01 | RADRPT ---
EXAM DATE/TIME: 02/16/2018 23:19 [facility] COMPARISON: CT ABDOMEN & PELVIS W CONTRAST, February 26, 2015, 7:22. INDICATIONS : Abdomen pain and back pain. IV CONTRAST: 95 cc Omnipaque 350 (iohexol) IV ORAL CONTRAST: No oral contrast ingested. RADIATION DOSE: 13.78 CTDIvol (mGy) MEDICAL HISTORY : Cardiovascular disease. Hypertension. Pancreatitis.GERD SURGICAL HISTORY : Appendectomy. Cholecystectomy.Tubal ligation. ENCOUNTER: Initial ACUITY: 1 day PAIN SCALE: 7/10 LOCATION: Bilateral abdomen TECHNIQUE: Volumetric scanning of the abdomen and pelvis was performed. Using automated exposure control and ad justment of the mA and/or kV according to patient size, radiation dose was kept as low as reasonably achievable to obtain optimal diagnostic quality images. DICOM format image data is available electro nically for review and comparison. FINDINGS: LOWER LUNGS: The visualized lower lungs are clear. LIVER: Prominent dilation of the intra-and extrahepatic biliary system with the common bile that measuring u p to 13 mm size, unchanged in appearance and configuration when compared to prior CT of January 2015. Homogeneous enhancement throughout the parenchyma of the kidney. SPLEEN: Normal size without lesion. PANCREAS: Stable appearance of the prominent pancreatic duct of the head without dilation of the duct of the ta il or body. No focal cortical abnormality seen. The configuration is unchanged from 2015. KIDNEYS: Normal in size and shape. There is no mass, stone or hydronephrosis. ADRENAL GLANDS: Within normal limits. VASCULAR: There is no aortic aneurysm. BOWEL/MESENTERY: The stomach, small bowel, and colon demonstrate no acute abnormality. There is no free intraperitone al air or fluid. ABDOMINAL WALL: Within normal limits. RETROPERITONEUM: There is no lymphadenopathy. BLADDER: No wall thickening or mass. REPRODUCTIVE: 3.5 cm oval low density structure in the right adnexa, characteristic of adnexal cyst, unchanged from prior CT in 2014. INGUINAL: There is no lymphadenopathy or hernia. MUSCULOSKELETAL: Within normal limits for patient age. CONCLUSION: No acute findings. Intra-and extrahepatic biliary ductal dilatation, dilation of the pancreatic duct in the head, and right adnexal cyst are unchanged in appearance when compared to prior CT scan in . Jair Baer MD on February 16, 2018 at 23:53 Board Certified Radiologist. This report was verified electronically.
[2018-02-17] MEDS ORDERED: KETOROLAC TROMETHAMINE 30 MG/ML (IVP) VIAL IV PUSH ONE (00:15)
--- NOTE | 2018-02-17 10:37 | EKG ---
Date Performed: 02/16/2018 Time Performed: 18:24:45 PTAGE: 67 years EKG: Sinus rhythm NORMAL ECG Compared to PREVIOUS TRACING the patient is no longer tachycardic PREVIOUS TRACIN12/25/2016 19.12 DOCTOR: Radha Fair Interpretating Date/Time 02/17/2018 10:36:27
== END 2018-02-17 00:40 | disposition home or self-care (01) ==
LOC: NEPD 14:53
DX: G89.29 Other chronic pain (principal); R10.9 Unspecified abdominal pain; F17.200 Nicotine dependence, unspecified, uncomplicated; I10 Essential (primary) hypertension; K21.9 Gastro-esophageal reflux disease without esophagitis
CPT/HCPCS: 71045; 74177; 80053; 81001; 82550; 83690; 84484; 85025; 85610; 85730; 93005; 96361; 96374; 96375; 99285; J2270; J2405; J7030; Q9967